=== PATIENT | female | born 1955 | race Caucasian/White ===

== ENCOUNTER 2017-08-28 07:44 | Day surgery (SDC) | payer OTHER ==
[~2017-08-28 07:44] MED LIST: PROPOFOL 200 MG/20 ML VIAL As Ordered
[2017-08-28] MEDS: NS 1,000 ML IV (07:45)
== END 2017-08-28 09:29 | disposition home or self-care (01) ==
LOC: M OPP 07:44
DX: Z12.11 Encounter for screening for malignant neoplasm of colon (principal); Z80.0 Family history of malignant neoplasm of digestive organs; K64.0 First degree hemorrhoids; E03.9 Hypothyroidism, unspecified; R09.1 Pleurisy; K57.30 Diverticulosis of large intestine without perforation or abscess without bleeding; J33.9 Nasal polyp, unspecified; R42 Dizziness and giddiness; Z85.828 Personal history of other malignant neoplasm of skin; G43.909 Migraine, unspecified, not intractable, without status migrainosus; J45.909 Unspecified asthma, uncomplicated; F41.9 Anxiety disorder, unspecified; Z78.0 Asymptomatic menopausal state; Z79.899 Other long term (current) drug therapy; Z87.891 Personal history of nicotine dependence
CPT/HCPCS: 45378

== ENCOUNTER → 2018-06-09 | Outpatient (REF) | payer OTHER ==
[~2018-06-09] MED LIST changes: +LEVO25TA5 PO; -PROPOFOL 200 MG/20 ML VIAL As Ordered; +SING10TA32 PO; +ZOLO100T PO; +[UNRECOGNIZED DRUG - OTHER]
[2018-06-09 13:27] LABS: MONO SCRN NEGATIVE (NEGATIVE)
== END ==
LOC: M LAB REF 12:36
PROVIDERS: ATTEND Nurse Practitioner Family
DX: R53.83 Other fatigue (principal)

== ENCOUNTER → 2018-07-12 | Outpatient (CLI) | payer OTHER ==
--- NOTE | 2018-07-12 10:42 | REP ---
MAXILLOFACIAL CT WITHOUT CONTRAST: HISTORY: Chronic maxillary sinusitis. COMPARISON: 06/07/2014 The patient is status post bilateral uncinectomy, partial ethmoidectomy and partial right middle nasal turbinectomy. Mucosal thickening is present in the sinuses. There is complete opacification of the ethmoid, frontal and left sphenoid sinuses. Mild mucosal thickening is present in the maxillary sinuses. Minimal mucosal thickening is present in the right sphenoid sinus. The middle and inferior nasal turbinates are partially paradoxical. There is minimal deviation of the nasal septum to the left. The cribriform plate, medial santos of the orbits and optic canals are intact. The carotid canals form a segment of the posterolateral santos of the sphenoid sinus. Soft tissue densities are present in the nasal passage consistent with polyps. There is expansion of the sella turcica. Calcifications are present in the sella turcica. There is remodeling and partial erosion of the anterior sellar wall, dorsum sella and posterior clinoids. IMPRESSION: 1. Postoperative change as described above. 2. Sinus mucosal thickening as described above. 3. There is soft tissue densities in the nasal passage consistent with polyps. 4. There is a calcified mass in the sella turcica with associated expansion of the sella turcica and partial erosion and remodeling of the adjacent bony structure. MR of the brain without and with contrast with attention to the pituitary gland is recommended for further evaluation. Electronically Signed by Dimitrios Conway MD 07/12/2018 10:45 A
== END ==
LOC: M RAD 09:45
PROVIDERS: ATTEND Otolaryngology
DX: J34.89 Other specified disorders of nose and nasal sinuses (principal); J32.0 Chronic maxillary sinusitis

== ENCOUNTER → 2018-08-05 | Outpatient (CLI) | payer OTHER ==
[~2018-08-05] MED LIST changes: +PROHANCE 279.3MG/ML 15ML VIAL (A9576) As Ordered ONE
--- NOTE | 2018-08-05 19:46 | REP ---
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 Abnormal maxillofacial CT study July 12, 2018. Technique: Axial and sagittal imaging planes are utilized for T1 and T2-weighted scans. Sequences include spin-echo, fast spin echo, FLAIR, and diffusion weighted sequences. Gadolinium enhancement dose is 7 ml of intravenous ProHance. MRI findings: MRI study confirms the presence of a large well circumscribed but somewhat lobulated mass in the sella turcica measuring 2.7 cm anteroposterior, 2.7 cm craniocaudal, by 2.6 cm anteroposterior. This is enlarges the sella turcica, compresses the pituitary caudally, extends into the cavernous sinus on the left partially enveloping the left carotid artery and displacing it laterally. There is early involvement of the cavernous sinus on the right. It extends upward in the suprasellar cistern with slight displacement of the optic chiasm in a cephalad direction. The pituitary stalk is deviated to the right by the mass. The lesion shows isointense signal on T1, heterogeneous slightly hyperintense signal relative to brain on T2, and slightly hyperintense T2 signal on FLAIR images. Postcontrast, the lesion demonstrates heterogeneous contrast enhancement. The lesion was not visible in [address] No other abnormal gadolinium enhancement is seen. There is again noted to be extensive bilateral ethmoid and frontal and sphenoid paranasal sinus disease. Mucosal thickening is seen in the maxillary sinuses. I cannot exclude nasal polyps. No intraorbital abnormality is seen. 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 Meningioma and craniopharyngioma are possibilities but considered less likely. Kristina sinusitis changes are again noted. Electronically Signed by Dionisio Kingston MD 08/05/2018 08:41 P
== END ==
LOC: M RAD 16:07
PROVIDERS: ATTEND Otolaryngology
DX: D44.3 Neoplasm of uncertain behavior of pituitary gland (principal)
CPT/HCPCS: 70553; A9576

== ENCOUNTER → 2018-08-21 | Outpatient (CLI) | payer OTHER ==
[~2018-08-21] MED LIST changes: -PROHANCE 279.3MG/ML 15ML VIAL (A9576) As Ordered ONE
[2018-08-21 09:03] LABS: BLOOD UREA NITROGEN 14 MG/DL (7-18); CALCIUM LEVEL 9.2 MG/DL (8.8-10.2); CARBON DIOXIDE LEVEL 28 MEQ/L (21-32); CHLORIDE LEVEL 109 MEQ/L (98-107); FREE T4 1.92 NG/DL (0.76-1.46); GLOMERULAR FILTRATION RATE > 60.0 (>45); GLUCOSE, FASTING 109 MG/DL (70-100); SODIUM LEVEL 142 MEQ/L (136-145)
[2018-08-21 09:18] LABS: CORTISOL AM 6.1 UG/DL (4.3-22.4); LUTEINIZING HORMONE 1.1 mIU/mL; PROLACTIN 31.9 NG/ML
[2018-08-21 09:19] LABS: FOLLICLE STIMULATING HORMONE 6.3 mIU/mL
[2018-08-23 15:08] LABS: ADRENOCORTICOTROPHIC HORMONE 29.3 pg/mL (7.2-63.3); HUMAN GROWTH HORMONE 0.2 ng/mL (0.0-10.0)
== END ==
LOC: M LAB 07:50
PROVIDERS: ATTEND Nurse Practitioner
DX: D35.2 Benign neoplasm of pituitary gland (principal)

== ENCOUNTER → 2018-12-15 | Outpatient (REF) | payer OTHER ==
[2018-12-15 14:37] LABS: CORTISOL AM 11.2 UG/DL (4.3-22.4)
[2018-12-16 10:36] LABS: FREE T3 7.9 PG/ML (2.2-4.0)
== END ==
LOC: M LAB REF 13:15
PROVIDERS: ATTEND Nurse Practitioner Family
DX: D35.2 Benign neoplasm of pituitary gland (principal)

== ENCOUNTER → 2019-01-12 | Outpatient (REF) | payer OTHER | LOC: M LAB REF 12:24 | PROVIDERS: ATTEND Nurse Practitioner Family | DX: D35.2 Benign neoplasm of pituitary gland (principal) ==

== ENCOUNTER → 2019-02-10 | Outpatient (REF) | payer OTHER ==
[2019-02-10 14:02] LABS: CORTISOL AM 16.5 UG/DL (4.3-22.4); ESTRADIOL < 19.0 PG/ML; FOLLICLE STIMULATING HORMONE 19.8 mIU/mL; LUTEINIZING HORMONE 11.3 mIU/mL; PROLACTIN 11.7 NG/ML
[2019-02-12 00:08] LABS: ADRENOCORTICOTROPHIC HORMONE 49.4 pg/mL (7.2-63.3); HUMAN GROWTH HORMONE 0.7 ng/mL (0.0-10.0)
== END ==
LOC: M LAB REF 11:42
PROVIDERS: ATTEND Internal Medicine
DX: D49.7 Neoplasm of unspecified behavior of endocrine glands and other parts of nervous system (principal)

== ENCOUNTER → 2019-03-11 | Outpatient (REF) | payer OTHER ==
[2019-03-11 13:14] LABS: CORTISOL AM 11.1 UG/DL (4.3-22.4); TOTAL T3 183.9 NG/DL (60.0-181.0)
== END ==
LOC: M LAB REF 12:38
PROVIDERS: ATTEND Nurse Practitioner Family
DX: D49.7 Neoplasm of unspecified behavior of endocrine glands and other parts of nervous system (principal)

== ENCOUNTER → 2019-03-23 | Outpatient (CLI) | payer OTHER ==
[2019-03-23 16:52] LABS: ALBUMIN 3.5 GM/DL (3.2-5.2); ALT/SGPT 37 U/L (12-78); BILIRUBIN,TOTAL 0.4 MG/DL (0.2-1.0); BLOOD UREA NITROGEN 14 MG/DL (7-18); CALCIUM LEVEL 9.4 MG/DL (8.8-10.2); CARBON DIOXIDE LEVEL 26 MEQ/L (21-32); CHLORIDE LEVEL 110 MEQ/L (98-107); CREATININE FOR GFR 0.62 MG/DL (0.55-1.30); GLOMERULAR FILTRATION RATE > 60.0 (>45); GLUCOSE, FASTING 110 MG/DL (70-100); SODIUM LEVEL 142 MEQ/L (136-145); TOTAL PROTEIN 6.8 GM/DL (6.4-8.2)
== END ==
LOC: M WUC 14:43
PROVIDERS: ATTEND Student in an Organized Health Care Education/Training Program
DX: E05.90 Thyrotoxicosis, unspecified without thyrotoxic crisis or storm (principal)

== ENCOUNTER → 2019-03-23 | Outpatient (REF) | payer OTHER | LOC: M LAB REF 16:25 | PROVIDERS: ATTEND Physician Assistant | DX: J02.9 Acute pharyngitis, unspecified (principal) ==

== ENCOUNTER → 2019-06-09 | Outpatient (REF) | payer OTHER | LOC: M LAB REF 12:29 | PROVIDERS: ATTEND Internal Medicine | DX: E05.90 Thyrotoxicosis, unspecified without thyrotoxic crisis or storm (principal) ==

== ENCOUNTER → 2019-08-17 | Outpatient (REF) | payer OTHER | LOC: M LAB REF 12:30 | PROVIDERS: ATTEND Internal Medicine | DX: D35.2 Benign neoplasm of pituitary gland (principal) ==

== ENCOUNTER → 2019-10-21 | Outpatient (CLI) | payer OTHER ==
[2019-10-21 16:10] LABS: ALBUMIN 3.6 GM/DL (3.2-5.2); ALT/SGPT 30 U/L (12-78); BILIRUBIN,TOTAL 0.4 MG/DL (0.2-1.0); BLOOD UREA NITROGEN 21 MG/DL (7-18); CALCIUM LEVEL 9.3 MG/DL (8.8-10.2); CARBON DIOXIDE LEVEL 25 MEQ/L (21-32); CHLORIDE LEVEL 109 MEQ/L (98-107); CREATININE FOR GFR 0.65 MG/DL (0.55-1.30); FREE T4 1.78 NG/DL (0.76-1.46); GLOMERULAR FILTRATION RATE > 60.0 (>45); GLUCOSE, FASTING 159 MG/DL (70-100); POTASSIUM SERUM 4.3 MEQ/L (3.5-5.1); SODIUM LEVEL 141 MEQ/L (136-145); TOTAL PROTEIN 6.9 GM/DL (6.4-8.2)
== END ==
LOC: M WUC 14:18
DX: D49.7 Neoplasm of unspecified behavior of endocrine glands and other parts of nervous system (principal)

== ENCOUNTER → 2019-12-15 | Outpatient (REF) | payer OTHER ==
[2020-02-24 04:56] LABS: ALBUMIN 3.9 GM/DL (3.2-5.2); ALT/SGPT 44 U/L (12-78); BILIRUBIN,TOTAL 0.6 MG/DL (0.2-1.0); BLOOD UREA NITROGEN 13 MG/DL (7-18); CALCIUM LEVEL 9.6 MG/DL (8.8-10.2); CARBON DIOXIDE LEVEL 29 MEQ/L (21-32); CHLORIDE LEVEL 108 MEQ/L (98-107); CREATININE FOR GFR 0.64 MG/DL (0.55-1.30); FREE T4 1.76 NG/DL (0.76-1.46); GLOMERULAR FILTRATION RATE > 60.0 (>45); GLUCOSE, FASTING 154 MG/DL (70-100); POTASSIUM SERUM 4.9 MEQ/L (3.5-5.1); SODIUM LEVEL 141 MEQ/L (136-145); TOTAL PROTEIN 7.3 GM/DL (6.4-8.2)
== END ==
LOC: M WUC 16:09
PROVIDERS: ATTEND Nurse Practitioner Adult Health
DX: D49.7 Neoplasm of unspecified behavior of endocrine glands and other parts of nervous system (principal)

== ENCOUNTER → 2020-01-23 | Outpatient (CLI) | payer OTHER ==
[2020-01-23 19:14] LABS: FREE T3 8.2 PG/ML (2.2-4.0); FREE T4 2.01 NG/DL (0.76-1.46); THYROID STIMULATING HORMONE 5.05 uIU/ML (0.358-3.740)
== END ==
LOC: M WUC 11:51
PROVIDERS: ATTEND Nurse Practitioner Adult Health
DX: D35.2 Benign neoplasm of pituitary gland (principal)

== ENCOUNTER → 2020-02-18 | Outpatient (CLI) | payer OTHER | LOC: M LABSMTC 13:43 | PROVIDERS: ATTEND Family Medicine | DX: Z11.59 Encounter for screening for other viral diseases (principal) ==

== ENCOUNTER → 2020-03-11 | Outpatient (CLI) | payer OTHER ==
[2020-03-11 11:42] LABS: ALBUMIN 3.5 GM/DL (3.2-5.2); ALT/SGPT 51 U/L (12-78); BILIRUBIN,TOTAL 0.5 MG/DL (0.2-1.0); BLOOD UREA NITROGEN 17 MG/DL (7-18); CALCIUM LEVEL 9.4 MG/DL (8.8-10.2); CARBON DIOXIDE LEVEL 27 MEQ/L (21-32); CHLORIDE LEVEL 105 MEQ/L (98-107); CORTISOL AM 20.4 UG/DL (4.3-22.4); CREATININE FOR GFR 0.53 MG/DL (0.55-1.30); FREE T3 7.1 PG/ML (2.2-4.0); FREE T4 1.89 NG/DL (0.76-1.46); GLOMERULAR FILTRATION RATE > 60.0 (>45); GLUCOSE, FASTING 189 MG/DL (70-100); POTASSIUM SERUM 4.9 MEQ/L (3.5-5.1); PROLACTIN 1.6 NG/ML; SODIUM LEVEL 139 MEQ/L (136-145); TOTAL PROTEIN 6.6 GM/DL (6.4-8.2)
[2020-03-14 18:26] LABS: ADRENOCORTICOTROPHIC HORMONE 29.7 pg/mL (7.2-63.3); HUMAN GROWTH HORMONE 0.1 ng/mL (0.0-10.0)
== END ==
LOC: M WUC 08:06
DX: D35.2 Benign neoplasm of pituitary gland (principal)

== ENCOUNTER → 2020-04-08 | Outpatient (CLI) | payer OTHER ==
--- NOTE | 2020-04-08 11:23 | REP ---
INDICATION: FALL SAME LEVEL, PAIN. COMPARISON: None. TECHNIQUE: Single AP plain film view of the pelvis. FINDINGS: Mineralization is normal. No pelvic fracture is identified. The sacroiliac articulations and hip articulations are unremarkable. There is superimposed bowel artifact over the symphysis pubis. IMPRESSION: No pelvic fracture is identified. <Electronically signed by Murphy Bergman > 04/08/20 [id number]
== END ==
LOC: M WUC 11:01
PROVIDERS: ATTEND Physician Assistant
DX: M25.552 Pain in left hip (principal); W01.0XXA Fall on same level from slipping, tripping and stumbling without subsequent striking against object, initial encounter; Y92.9 Unspecified place or not applicable

== ENCOUNTER → 2020-05-17 | Outpatient (CLI) | payer OTHER ==
[2020-05-17 16:44] LABS: ALBUMIN 4.1 GM/DL (3.2-5.2); BILIRUBIN,DIRECT 0.2 MG/DL (0.0-0.2); BILIRUBIN,TOTAL 0.5 MG/DL (0.2-1.0); FREE T3 7.5 PG/ML (2.2-4.0); FREE T4 2.02 NG/DL (0.76-1.46); THYROID STIMULATING HORMONE 4.97 uIU/ML (0.358-3.740); TOTAL PROTEIN 7.3 GM/DL (6.4-8.2)
== END ==
LOC: M WUC 13:20
PROVIDERS: ATTEND Student in an Organized Health Care Education/Training Program
DX: D35.2 Benign neoplasm of pituitary gland (principal)

== ENCOUNTER → 2020-06-18 | Outpatient (CLI) | payer OTHER | LOC: M LABSMTC 08:02 | PROVIDERS: ATTEND Surgery Surgical Oncology | DX: Z20.822 Contact with and (suspected) exposure to COVID-19 (principal) ==

== ENCOUNTER → 2020-08-16 | Outpatient (CLI) | payer OTHER ==
[2020-08-16 17:11] LABS: FREE T4 0.8 NG/DL (0.76-1.46)
== END ==
LOC: M WUC 10:45
PROVIDERS: ATTEND Nurse Practitioner Adult Health
DX: E89.0 Postprocedural hypothyroidism (principal)

== ENCOUNTER → 2020-09-02 | Outpatient (CLI) | payer OTHER ==
[2020-09-02 17:22] LABS: FREE T3 1.4 PG/ML (2.2-4.0); FREE T4 0.57 NG/DL (0.76-1.46)
== END ==
LOC: M WUC 10:09
DX: D35.2 Benign neoplasm of pituitary gland (principal)

== ENCOUNTER → 2020-09-30 | Outpatient (CLI) | payer OTHER ==
[2020-09-30 16:43] LABS: FREE T3 2.2 PG/ML (2.2-4.0); FREE T4 0.72 NG/DL (0.76-1.46)
== END ==
LOC: M WUC 10:15
PROVIDERS: ATTEND Student in an Organized Health Care Education/Training Program
DX: D35.2 Benign neoplasm of pituitary gland (principal)

== ENCOUNTER → 2020-11-18 | Outpatient (CLI) | payer OTHER ==
[2020-11-18 17:25] LABS: FREE T4 0.9 NG/DL (0.76-1.46)
== END ==
LOC: M WUC 11:41
PROVIDERS: ATTEND Student in an Organized Health Care Education/Training Program
DX: D35.2 Benign neoplasm of pituitary gland (principal)

== ENCOUNTER → 2021-01-17 | Outpatient (CLI) | payer OTHER ==
[2021-01-17 17:19] LABS: FREE T3 1.9 PG/ML (2.2-4.0); FREE T4 0.88 NG/DL (0.76-1.46)
== END ==
LOC: M WUC 11:15
PROVIDERS: ATTEND Student in an Organized Health Care Education/Training Program
DX: D35.2 Benign neoplasm of pituitary gland (principal)

== ENCOUNTER → 2021-02-23 | Outpatient (CLI) | payer OTHER ==
[2021-02-23 17:54] LABS: FREE T4 0.98 NG/DL (0.76-1.46)
== END ==
LOC: M WUC 10:44
PROVIDERS: ATTEND Student in an Organized Health Care Education/Training Program
DX: D35.2 Benign neoplasm of pituitary gland (principal)

== ENCOUNTER → 2021-03-10 | Outpatient (CLI) | payer OTHER | LOC: M WUC 09:50 | PROVIDERS: ATTEND Nurse Practitioner Adult Health | DX: D35.2 Benign neoplasm of pituitary gland (principal) ==

== ENCOUNTER → 2021-04-24 | Outpatient (CLI) | payer MEDICARE, OTHER ==
[2021-04-24 17:21] LABS: FREE T3 2.5 PG/ML (2.2-4.0); FREE T4 1.19 NG/DL (0.76-1.46)
== END ==
LOC: M WUC 13:21
PROVIDERS: ATTEND Student in an Organized Health Care Education/Training Program
DX: D35.2 Benign neoplasm of pituitary gland (principal)

== ENCOUNTER → 2021-10-19 | Outpatient (CLI) | payer MEDICARE, OTHER ==
[2021-10-20 07:02] LABS: FREE T4 1.06 NG/DL (0.76-1.46)
[2021-10-20 09:51] LABS: CORTISOL BASELINE 10.5 UG/DL (4.3-22.4)
[2021-10-20 09:52] LABS: FOLLICLE STIMULATING HORMONE 25.2 mIU/mL; PROLACTIN 9.5 NG/ML
== END ==
LOC: M WUC 10:53
PROVIDERS: ATTEND Student in an Organized Health Care Education/Training Program
DX: D35.2 Benign neoplasm of pituitary gland (principal); E23.0 Hypopituitarism

== ENCOUNTER → 2022-02-26 | Outpatient (CLI) | payer MEDICARE, OTHER ==
[2022-02-26 18:11] LABS: FREE T4 0.84 NG/DL (0.76-1.46); THYROID STIMULATING HORMONE 94.8 uIU/ML (0.358-3.740)
[2022-02-26 18:25] LABS: CORTISOL PM 9.4 UG/DL (3.1-16.7); FOLLICLE STIMULATING HORMONE 20.5 mIU/mL; PROLACTIN 8.6 NG/ML
== END ==
LOC: M WUC 14:36
PROVIDERS: ATTEND Nurse Practitioner Adult Health
DX: D35.2 Benign neoplasm of pituitary gland (principal)

== ENCOUNTER → 2022-07-25 | Outpatient (CLI) | payer MEDICARE, OTHER ==
[~2022-07-25] MED LIST changes: +MONT-5 PO; -SING10TA32 PO
== END ==
LOC: M WUC 11:32
PROVIDERS: ATTEND Internal Medicine
DX: M25.50 Pain in unspecified joint (principal)

== ENCOUNTER → 2022-08-24 | Outpatient (CLI) | payer MEDICARE, OTHER ==
[2022-08-24 12:36] LABS: ALBUMIN 4.1 G/DL (3.2-5.2); BILIRUBIN,DIRECT 0.2 MG/DL (<0.4); BILIRUBIN,TOTAL 0.9 MG/DL (0.3-1.2); TOTAL PROTEIN 7.2 G/DL (5.7-8.2)
[2022-08-24 12:37] LABS: CORTISOL AM 11.9 UG/DL (4.3-22.4)
[2022-08-24 12:41] LABS: FREE T4 1.41 NG/DL (0.89-1.76); PROLACTIN 9.38 NG/ML; THYROID STIMULATING HORMONE 65.035 uIU/ML (0.55-4.78)
[2022-08-24 12:42] LABS: FOLLICLE STIMULATING HORMONE 24.5 mIU/ML
== END ==
LOC: M WUC 10:20
PROVIDERS: ATTEND Student in an Organized Health Care Education/Training Program
DX: D35.2 Benign neoplasm of pituitary gland (principal)

== ENCOUNTER 2022-10-14 08:32 | Emergency (ER) | payer MEDICARE, OTHER ==
[~2022-10-14] VITALS: Ht 170.2 cm; Wt 65.0 kg
[2022-10-14 09:28] LABS: BASO # 0.1 10^3/uL (0.0-0.2); BASO % 0.7 % (0.0-1.0); EOS # 0.2 10^3/uL (0.0-0.5); EOS % 2.9 % (0.0-3.0); HEMATOCRIT 45.7 % (36.0-47.0); LYMPH # 3.2 10^3/uL (1.5-5.0); LYMPH % 41.1 % (24.0-44.0); MEAN CORPUSCULAR HEMOGLOBIN 29.2 pg (27.0-33.0); MEAN CORPUSCULAR HGB CONC 32.8 g/dl (32.0-36.5); MEAN CORPUSCULAR VOLUME 88.9 fl (80.0-96.0); MONO # 0.6 10^3/uL (0.0-0.8); MONO % 7.6 % (2.0-8.0); NEUTROPHILS # 3.7 10^3/uL (1.5-8.5); NEUTROPHILS % 47.4 % (36.0-66.0); PLATELET COUNT, AUTOMATED 259 10^3/uL (150-450); RED BLOOD COUNT 5.14 10^6/uL (4.00-5.40); WHITE BLOOD COUNT 7.7 10^3/uL (4.0-10.0)
[2022-10-14 09:36] LABS: LIPASE 45 U/L (12-53)
[2022-10-14 09:38] LABS: ALBUMIN 4.3 G/DL (3.2-5.2); ALKALINE PHOSPHATASE 94 U/L (46-116); ALT/SGPT 18 U/L (7.0-40); AST/SGOT 14 U/L (<34); BILIRUBIN,DIRECT 0.2 MG/DL (<0.4); BLOOD UREA NITROGEN 19 MG/DL (9-23); CALCIUM LEVEL 9.4 MG/DL (8.3-10.6); CARBON DIOXIDE LEVEL 26 MMOL/L (20-31); CHLORIDE LEVEL 104 MMOL/L (98-107); CREATININE FOR GFR 0.67 MG/DL (0.55-1.30); GLOMERULAR FILTRATION RATE > 60.0 (>45); GLUCOSE, FASTING 113 MG/DL (74-106); POTASSIUM SERUM 4.1 MMOL/L (3.5-5.1); SODIUM LEVEL 138 MMOL/L (136-145); TOTAL PROTEIN 7.3 G/DL (5.7-8.2)
[2022-10-14 09:39] LABS: HCG, SERUM QUALITATIVE NEGATIVE (NEGATIVE)
[2022-10-14] MEDS ORDERED: ISOVUE-370 76% 100ML VIAL As Ordered ONE (11:06)
[2022-10-14] MEDS ORDERED: [UNRECOGNIZED DRUG - CODE] (11:26)
[2022-10-14 11:39] LABS: THYROID STIMULATING HORMONE 103.961 uIU/ML (0.55-4.78)
[2022-10-14 15:02] VITALS: BP 158/78; TEMP 96.6; O2SAT 98
== END 2022-10-14 15:03 | disposition home or self-care (01) ==
LOC: M ED 08:32
DX: R10.9 Unspecified abdominal pain (principal); N83.9 Noninflammatory disorder of ovary, fallopian tube and broad ligament, unspecified; D25.9 Leiomyoma of uterus, unspecified; E03.9 Hypothyroidism, unspecified; F41.9 Anxiety disorder, unspecified; F17.200 Nicotine dependence, unspecified, uncomplicated; F10.10 Alcohol abuse, uncomplicated; Z79.899 Other long term (current) drug therapy; Z79.52 Long term (current) use of systemic steroids
CPT/HCPCS: 36415; 74177; 76856; 80048; 80076; 81001; 83690; 83735; 84439; 84443; 84703; 85025; 87086; 99284; Q9967

== ENCOUNTER → 2022-10-24 | Outpatient (REF) | payer MEDICARE ==
[~2022-10-24] MED LIST changes: +[UNRECOGNIZED DRUG - CODE]
== END ==
LOC: M SFHCWAGY 12:36
PROVIDERS: ATTEND Obstetrics & Gynecology
DX: N83.209 Unspecified ovarian cyst, unspecified side (principal); R19.09 Other intra-abdominal and pelvic swelling, mass and lump

== ENCOUNTER 2023-02-04 06:12 | Day surgery (SDC) | payer MEDICARE ==
[~2023-02-04] VITALS: Ht 170.2 cm; Wt 66.5 kg
[~2023-02-04 06:12] MED LIST changes: +CLOB5CR TOP; +CVS-161 PO; +SERT50TA29 PO; +VITMTA PO; -[UNRECOGNIZED DRUG - CODE]; +[UNRECOGNIZED DRUG - CODE] IM; +ceFAZolin SOD 2 GM in IV 1 EA IV ONE
[2023-02-04] MEDS ORDERED: LR 1,000 ML IV SCH ×2 (06:35→09:45)
[2023-02-04] MEDS ORDERED: LIDOCAINE 2% 100MG/5ML SDV (FOR ANES.) As Ordered ONE (06:56)
[2023-02-04] MEDS ORDERED: ROCURONIUM BROMIDE 50MG/5ML VIAL As Ordered ONE ×2 (06:56→08:11)
[2023-02-04] MEDS ORDERED: propofoL 200 MG/20 ML VIAL As Ordered ONE (06:56)
[2023-02-04] MEDS ORDERED: KETOROLAC 60MG 2ML VIAL As Ordered ONE (06:57)
[2023-02-04] MEDS ORDERED: ONDANSETRON 4MG 2ML VIAL As Ordered ONE (06:57)
[2023-02-04] MEDS ORDERED: SUGAMMADEX SODIUM 500 MG/5 ML VIAL (BRIDION) As Ordered ONE (06:57)
[2023-02-04] MEDS ORDERED: ACETAMINOPHEN 1000MG 100ML IV BAG As Ordered ONE (06:57)
[2023-02-04] MEDS ORDERED: fentaNYL 250 MCG/5 ML INJECTION As Ordered ONE (07:02)
[2023-02-04] MEDS ORDERED: MIDAZOLAM INJ 2MG/2ML VIAL As Ordered ONE (07:03)
[2023-02-04 08:22] LABS: HEMATOCRIT 44.5 % (36.0-47.0); HEMOGLOBIN 14.5 g/dl (12.0-15.5); MEAN CORPUSCULAR HEMOGLOBIN 29.5 pg (27.0-33.0); MEAN CORPUSCULAR HGB CONC 32.6 g/dl (32.0-36.5); MEAN CORPUSCULAR VOLUME 90.4 fl (80.0-96.0); PLATELET COUNT, AUTOMATED 280 10^3/uL (150-450); RED BLOOD COUNT 4.92 10^6/uL (4.00-5.40); WHITE BLOOD COUNT 9.4 10^3/uL (4.0-10.0)
[2023-02-04] MEDS ORDERED: HYDROMORPHONE HCL 0.5 MG/ 0.5 ML SYRINGE IV PRN (09:45)
[2023-02-04] MEDS ORDERED: ONDANSETRON 4MG 2ML VIAL IV PRN (09:45)
[2023-02-04] MEDS ORDERED: fentaNYL 100 MCG/2 ML INJECTION IV PRN (09:45)
[2023-02-04] MEDS ORDERED: oxyCODONE 5MG TAB PO PRN (09:45)
[2023-02-04] MEDS ORDERED: PERCOCET 5MG/325MG TAB PO PRN (11:10)
[2023-02-04 11:52] VITALS: BP 125/66; TEMP 97.5; O2SAT 97
[2023-02-04] MEDS ORDERED: KETOROLAC 30 MG/ML 1ML VIAL IV SCH (16:00)
== END 2023-02-04 11:52 | disposition home or self-care (01) ==
LOC: M SDC 06:12
PROVIDERS: ATTEND Obstetrics & Gynecology
DX: D25.9 Leiomyoma of uterus, unspecified (principal); I10 Essential (primary) hypertension; E78.5 Hyperlipidemia, unspecified; E03.9 Hypothyroidism, unspecified; E05.90 Thyrotoxicosis, unspecified without thyrotoxic crisis or storm; K44.9 Diaphragmatic hernia without obstruction or gangrene; K21.9 Gastro-esophageal reflux disease without esophagitis; F41.9 Anxiety disorder, unspecified; F32.A Depression, unspecified; F12.10 Cannabis abuse, uncomplicated; Z79.899 Other long term (current) drug therapy; Z92.3 Personal history of irradiation; Z85.3 Personal history of malignant neoplasm of breast
CPT/HCPCS: 36415; 58570; 85027; 86850; 86900; 86901; 88307; J0131; J0665; J0690; J1100; J1885; J2250; J2405; J3010; S2900

== ENCOUNTER → 2023-03-07 | Outpatient (CLI) | payer MEDICARE ==
[~2023-03-07] MED LIST changes: -ceFAZolin SOD 2 GM in IV 1 EA IV ONE
[2023-03-09 15:08] LABS: HE4 54.1 pmol/L (0.0-96.5)
== END ==
LOC: M WUC 09:08
PROVIDERS: ATTEND Nurse Practitioner Adult Health
DX: N94.89 Other specified conditions associated with female genital organs and menstrual cycle (principal)

== ENCOUNTER → 2023-03-19 | Outpatient (CLI) | payer MEDICARE ==
[2023-03-19 13:00] LABS: ALBUMIN 4.2 G/DL (3.2-5.2); ALKALINE PHOSPHATASE 90 U/L (46-116); ALT/SGPT 18 U/L (7.0-40); AST/SGOT 17 U/L (<34); BILIRUBIN,DIRECT 0.1 MG/DL (<0.4); BILIRUBIN,TOTAL 0.6 MG/DL (0.3-1.2); TOTAL PROTEIN 7.4 G/DL (5.7-8.2)
[2023-03-19 13:03] LABS: THYROID STIMULATING HORMONE > 150.000 uIU/ML (0.55-4.78)
== END ==
LOC: M WUC 09:18
PROVIDERS: ATTEND Student in an Organized Health Care Education/Training Program
DX: E23.0 Hypopituitarism (principal); D35.2 Benign neoplasm of pituitary gland

== ENCOUNTER → 2023-09-12 | Outpatient (CLI) | payer MEDICARE ==
[2023-09-12 12:54] LABS: BLOOD UREA NITROGEN 15 MG/DL (9-23); CALCIUM LEVEL 9.4 MG/DL (8.3-10.6); CARBON DIOXIDE LEVEL 30 MMOL/L (20-31); CHLORIDE LEVEL 104 MMOL/L (98-107); CREATININE FOR GFR 0.62 MG/DL (0.55-1.30); GLOMERULAR FILTRATION RATE > 60.0 (>45); GLUCOSE, FASTING 106 MG/DL (74-106); POTASSIUM SERUM 4.3 MMOL/L (3.5-5.1); SODIUM LEVEL 140 MMOL/L (136-145)
[2023-09-12 12:58] LABS: CORTISOL AM 17.7 UG/DL (4.3-22.4); PROLACTIN 10.19 NG/ML
== END ==
LOC: M WUC 08:07
PROVIDERS: ATTEND Nurse Practitioner Adult Health
DX: D35.2 Benign neoplasm of pituitary gland (principal)

== ENCOUNTER → 2023-10-10 | Outpatient (CLI) | payer MEDICARE ==
[2023-10-10 16:46] LABS: CORTISOL AM 13.3 UG/DL (4.3-22.4)
[2023-10-10 16:47] LABS: BLOOD UREA NITROGEN 25 MG/DL (9-23); CALCIUM LEVEL 9.4 MG/DL (8.3-10.6); CARBON DIOXIDE LEVEL 27 MMOL/L (20-31); CHLORIDE LEVEL 106 MMOL/L (98-107); GLOMERULAR FILTRATION RATE > 60.0 (>45); GLUCOSE, FASTING 94 MG/DL (74-106); POTASSIUM SERUM 4.1 MMOL/L (3.5-5.1); SODIUM LEVEL 138 MMOL/L (136-145)
[2023-10-10 16:49] LABS: PROLACTIN 10.48 NG/ML
== END ==
LOC: M WUC 11:06
PROVIDERS: ATTEND Nurse Practitioner Adult Health
DX: D35.2 Benign neoplasm of pituitary gland (principal)

== ENCOUNTER → 2023-11-05 | Outpatient (REF) | payer MEDICARE ==
[2023-11-05 12:02] LABS: APPEARANCE, URINE CLEAR (CLEAR); BACTERIA, URINE AUTO NEGATIVE (NEGATIVE); BILIRUBIN, URINE AUTO NEGATIVE (NEGATIVE); BLOOD, URINE BLOOD 1+ (NEGATIVE); COLOR, URINE STRAW (YELLOW); GLUCOSE, URINE (UA) AUTO NEGATIVE (NEGATIVE); KETONE, URINE AUTO NEGATIVE (NEGATIVE); LEUKOCYTE ESTERASE, URINE AUTO NEGATIVE (NEGATIVE); NITRITE, URINE AUTO NEGATIVE (NEGATIVE); PROTEIN, URINE AUTO NEGATIVE (NEGATIVE); RBC, URINE AUTO 1 /HPF (0-3); SPECIFIC GRAVITY URINE AUTO 1.005 (1.002-1.035); SQUAMOUS EPITHELIAL CELL UR AU 0 /HPF (0-6); UROBILINOGEN, URINE AUTO 0.2 mg/dL (0.0-2.0); WBC, URINE AUTO 0 /HPF (0-3)
== END ==
LOC: M LAB REF 11:44
PROVIDERS: ATTEND Internal Medicine
DX: R31.9 Hematuria, unspecified (principal)

== ENCOUNTER → 2023-11-11 | Outpatient (REF) | payer MEDICARE, OTHER | LOC: M LAB REF 13:00 | PROVIDERS: ATTEND Internal Medicine | DX: R31.9 Hematuria, unspecified (principal) ==

== ENCOUNTER → 2024-06-10 | Outpatient (REF) | payer MEDICARE, OTHER ==
[2024-06-10 17:48] LABS: LIPASE 44 U/L (12-53)
[2024-06-10 17:50] LABS: C REACTIVE PROTEIN QUANTITATIV < 0.50 MG/DL (<1.0)
== END ==
LOC: M LAB REF 16:22
PROVIDERS: ATTEND Internal Medicine
DX: R10.32 Left lower quadrant pain (principal)

== ENCOUNTER → 2025-02-18 | Outpatient (REF) | payer MEDICARE, OTHER ==
[2025-02-18 18:21] LABS: APPEARANCE, URINE CLEAR (CLEAR); BACTERIA, URINE AUTO NEGATIVE (NEGATIVE); BILIRUBIN, URINE AUTO NEGATIVE (NEGATIVE); BLOOD, URINE BLOOD NEGATIVE (NEGATIVE); GLUCOSE, URINE (UA) AUTO NEGATIVE (NEGATIVE); KETONE, URINE AUTO NEGATIVE (NEGATIVE); LEUKOCYTE ESTERASE, URINE AUTO NEGATIVE (NEGATIVE); NITRITE, URINE AUTO NEGATIVE (NEGATIVE); PROTEIN, URINE AUTO NEGATIVE (NEGATIVE); RBC, URINE AUTO 0 /HPF (0-3); SPECIFIC GRAVITY URINE AUTO 1.002 (1.002-1.035); SQUAMOUS EPITHELIAL CELL UR AU 0 /HPF (0-6); UROBILINOGEN, URINE AUTO 0.2 mg/dL (0.0-2.0); WBC, URINE AUTO 0 /HPF (0-3)
== END ==
LOC: M LAB REF 17:14
DX: R39.89 Other symptoms and signs involving the genitourinary system (principal)